=== PATIENT | female | born 1995 | race Caucasian/White ===

== ENCOUNTER → 2019-11-15 | Outpatient (CLI) | payer OTHER | END | disposition home or self-care (01) | LOC: MAMMO 13:17 | DX: N63.13 Unspecified lump in the right breast, lower outer quadrant (principal) ==

== ENCOUNTER → 2019-12-13 | Day surgery (SDC) | payer OTHER ==
[~2019-12-13] VITALS: Ht 165.1 cm; Wt 70.8 kg
[~2019-12-13] MED LIST: NORCO 5-325 TA1 EACH PO
[2019-12-13 09:05] VITALS: BP 129/77
[2019-12-13 10:13] VITALS: BP 103/58
[2019-12-13 10:28] VITALS: BP 112/58
[2019-12-13 10:43] VITALS: BP 106/62
== END | disposition home or self-care (01) ==
LOC: SDC 12-10 13:15
DX: D24.1 Benign neoplasm of right breast (principal)